=== PATIENT | female | born 1985 | race Caucasian/White ===

== ENCOUNTER 2020-05-18 09:47 | Inpatient (IN) | payer OTHER ==
[~2020-05-18] VITALS: Ht 180.3 cm; Wt 79.8 kg
[2020-06-11] MEDS ORDERED: PRENATAL TABLE1 EAC1 PO (05:15)
== END 2020-06-13 10:28 | DRG 807 ==
LOC: SURG-SUITE 06-11 05:07 → LDR 06-11 05:07 → SURG-SUITE 06-11 10:36 → LDR 06-13 11:15
PROVIDERS: ADMIT Obstetrics & Gynecology; ATTEND Obstetrics & Gynecology
PROC: 10E0XZZ Delivery of Products of Conception, External Approach (ICD-10-PCS; principal; 2020-06-11)
PROC: 0HQ9XZZ Repair Perineum Skin, External Approach (ICD-10-PCS; 2020-06-11)
PROC: 4A0HXFZ Measurement of Products of Conception, Cardiac Rhythm, External Approach (ICD-10-PCS; 2020-06-11)
DX: O70.0 First degree perineal laceration during delivery (principal); Z37.0 Single live birth; Z3A.39 39 weeks gestation of pregnancy

== ENCOUNTER 2020-06-08 09:16 | Outpatient (CLI) | payer OTHER | END 2020-06-08 11:21 | disposition home or self-care (01) | LOC: NST 09:16 | PROVIDERS: ATTEND Obstetrics & Gynecology Maternal & Fetal Medicine | DX: Z34.83 Encounter for supervision of other normal pregnancy, third trimester (principal) ==